=== PATIENT | female | born 1980 | race African-American/Black ===

== ENCOUNTER 2020-06-12 14:37 | Emergency (ER) | payer BC, OTHER ==
--- NOTE | 2020-06-12 15:02 | ULT ---
Exam:Leftlower extremity venous ultrasound with Doppler HISTORY: Leftlower extremity swelling COMPARISON: None TECHNIQUE: Grayscale, color flow, Doppler imaging and spectral wave muscle performed left lower extre mity venous system FINDINGS: There is compressibility, presence of flow and augmentation in the common femoral vein, femoral vein and popliteal vein. There is flow in the posterior tibial vein. There is flow in the greater saphenous vein and profunda femoral vein IMPRESSION: No thrombus in the left lower extremity deep venous system.
== END 2020-06-12 16:05 | disposition home or self-care (01) ==
LOC: ERS 14:37
DX: M54.42 Lumbago with sciatica, left side (principal); I10 Essential (primary) hypertension; Z87.891 Personal history of nicotine dependence; Z79.899 Other long term (current) drug therapy